=== PATIENT | female | born 1960 | race Caucasian/White ===

== ENCOUNTER 2018-12-15 08:06 | Inpatient (IN) | payer OTHER | END 2018-12-18 13:25 | disposition home or self-care (01) | LOC: PAS IN 08:06 → ORTHO 4S 13:18 | PROC: 0SRD0J9 Replacement of Left Knee Joint with Synthetic Substitute, Cemented, Open Approach (ICD-10-PCS; principal; 2018-12-15 10:04) | DX: M17.12 Unilateral primary osteoarthritis, left knee (principal); I10 Essential (primary) hypertension ==

== ENCOUNTER 2020-02-22 07:25 | Inpatient (IN) | payer OTHER ==
[2020-02-15 14:04] LABS: BASOPHILS % (AUTO) 0.4 % (0-1); EOSINOPHILS # (AUTO) 0.2 X10'3 (0-0.9); EOSINOPHILS % (AUTO) 2.1 % (0-6); LYMPHOCYTES # (AUTO) 3.2 X10'3 (1.1-4.8); MEAN CORPUSCULAR HEMOGLOBIN 27.9 PG (27.0-31.0); MEAN CORPUSCULAR HGB CONC 32.8 g/dL (33.0-36.5); MEAN CORPUSCULAR VOLUME 84.9 FL (78-98); MEAN PLATELET VOLUME 8.9 FL (7.4-10.4); MONOCYTES # (AUTO) 0.7 X10'3 (0-0.9); NEUTROPHILS # (AUTO) 3.3 X10'3 (1.8-7.7); NEUTROPHILS % (AUTO) 45.5 % (42-75); PRE OP HEMATOCRIT 44.7 % (35.0-45.0); PRE OP HEMOGLOBIN 14.7 g/dL (12.0-16.0); PRE OP PLATELET COUNT 290 X10'3 (140-440); RED BLOOD COUNT 5.27 X10'6 (4.20-5.60)
[2020-02-15 14:25] LABS: ALBUMIN 4.2 G/DL (3.4-5.0); ALBUMIN/GLOBULIN RATIO 1.1 (1.1-1.5); ALKALINE PHOSPHATASE 56 IU/L (46-116); BLOOD UREA NITROGEN 9 MG/DL (7-18); BUN/CREATININE RATIO 11.8 (6.6-38.0); CALCIUM 9.3 MG/DL (8.5-10.1); CHLORIDE 106 MMOL/L (99-107); CREATININE 0.76 MG/DL (0.40-0.90); PRE OP ALT 23 U/L (30-65); PRE OP ANION GAP 7 (8-16); PRE OP AST 12 U/L (10-37); PRE OP BILIRUB, TOTAL 0.3 MG/DL (0.0-1.0); PRE OP GLUCOSE 104 MG/DL (70-104); PRE OP POTASSIUM 4.1 MMOL/L (3.4-5.1); PRE OP SODIUM 141 MMOL/L (135-145); TOTAL CARBON DIOXIDE 28.2 MMOL/L (24-32); TOTAL PROTEIN 7.9 G/DL (6.4-8.2); eGFR 78 ML/MIN
[~2020-02-22] VITALS: Ht 170.2 cm; Wt 102.8 kg
[2020-02-22] VITALS (21 sets, daily range): BP systolic 83–120; BP diastolic 51–73
[~2020-02-22 07:25] MED LIST: CARV25TA2 PO; CHOL200074 PO; DOCUMENT DATE & TIME OF BETA-BLOCKER PO ONE; HYDROmorphone inj. 0.5 MG/0.5 ML DISP.SYRIN IV PRN; LEVO112T5 PO; MULT-1085 PO; SPIR50TA5 PO; acetaminophen 325mg tablet PO ONE; acetaminophen 325mg tablet PO PRN; bisacodyl 10mg suppository rectal RC PRN; ceFAZolin 2gm in dextrose, iso 50 ML IV ONE; celeCOXIB 100mg capsule PO ONE; diphenhydrAMINE 25mg capsule PO PRN; famotidine 20mg tablet PO ONE; gabapentin 300mg capsule PO ONE; magnesium hydroxide 30ml (MOM) UD suspension PO PRN; metoclopramide 5 mg/ml inj IV ONE; ondansetron/PF 4mg/2ml inj IV PRN; oxyCODONE SR 10mg (sust. release) tab -2 tabs (20mg) PO ONE; ringers solution, lacted 1,000 ML IV SCH; tranexamic acid inj. 1,000 MG in normal saline 100 ML IV ONE; vancomycin 1,500 MG in NS 300ml IV soln IV ONE
[2020-02-22] MEDS ORDERED: ketorolac trometh. 30mg/ml inj. ONE (08:00)
[2020-02-22] MEDS: spironolactone 50 MG tablet PO SCH (08:00)
[2020-02-22] MEDS: gabapentin 300mg capsule PO SCH ×3 (08:00→20:12)
[2020-02-22] MEDS ORDERED: vancomycin 1,000mg inj ONE (08:01)
[2020-02-22] MEDS ORDERED: ROPIVAcaine 0.5% (5mg/ml) 30ml vial ONE ×3 (08:01→09:12)
[2020-02-22] MEDS ORDERED: epiNEPHrine 1 mg/ml inj ONE (08:01)
[2020-02-22] MEDS ORDERED: cloNIDine hcl/PF 100mcg/ml inj ONE (08:01)
[2020-02-22] MEDS ORDERED: MIDAZolam 1mg/ml 10ml vial ONE (08:50)
[2020-02-22] MEDS ORDERED: fentaNYL/PF 50MCG/1 ML 2ML syringe ONE (08:50)
[2020-02-22] MEDS ORDERED: ePHEDrine 50MG/ML INJ. ONE (09:12)
[2020-02-22] MEDS ORDERED: ringers solution, lacted 1,000 ML IV SCH (09:46)
[2020-02-22] MEDS ORDERED: morphine 4 MG/ML inj SYRINge IV PRN (09:50)
[2020-02-22] MEDS ORDERED: meperidine/PF 25mg/ml syringe IV PRN ×3 (09:50)
[2020-02-22] MEDS ORDERED: ondansetron/PF 4mg/2ml inj IV PRN (09:50)
[2020-02-22] MEDS ORDERED: morphine 2 MG/ML inj. syringe IV PRN (09:50)
[2020-02-22] MEDS ORDERED: proCHLORperazine 10 MG/2 ml inj IV PRN (09:50)
--- NOTE | 2020-02-22 10:55 | NUR ---
PATIENT ARRIVED TO RECOVERY VIA BED WITH DR TAYLOR, PATIENT A&OX4, DENIES PAIN, V/S WNL, NEUROVASCULAR CHECKS INTACT, 18 G PIV LUE , TANI DRESSING TO RIGHT KNEE CDI W/ COLD POWDER PACK AND ON QUE BALL AT 4ML/HR, SCD ON. SENSATION T-10.
[2020-02-22] MEDS: ROPIVAcaine 0.2%/PF PUMP/bolus 550 ML ADDCANAL SCH (11:59)
[2020-02-22] MEDS ORDERED: ROPIVAcaine 0.2% (10 MG/5 ML) BOLUS INJECTION ADDCANAL PRN (12:00)
--- NOTE | 2020-02-22 12:35 | NUR ---
PATIENT A&OX4, DENIES PAIN, V/S WNL, NEUROVASCULAR CHECKS INTACT, 18 G PIV LUE , TANI DRESSING TO RIGHT KNEE CDI W/ COLD POWDER PACK AND ON QUE BALL AT 4ML/HR, SCD ON. SENSATION T-11. . PATIENT TAKEN TO 4024B WITH ALL BELONGINGS AND HOOKED UP TO MONITORS IN ROOM AND REPORT GIVEN TO ENTERTAINMENT REPORTER WHO HAS TAKEN OVER PATIENT CARE.BED LOW, CALL LIGHT PRESENT AND VSS.
[2020-02-22] MEDS: potassium cl 20mEq in 1/2 NS 1,000 ML IV SCH ×3 (14:13→17:38)
[2020-02-22] MEDS: oxyCODONE/APAP 10/325mg tablet PO PRN ×2 (15:31→20:12)
[2020-02-22] MEDS ORDERED: tranexamic acid 1gm/0.7% sal. 100 ML IV ONE (16:00)
[2020-02-22] MEDS: ceFAZolin 2gm in dextrose, iso 50 ML IV SCH (17:15)
--- NOTE | 2020-02-22 18:20 | NUR ---
Problems reprioritized. Patient report given, questions answered & plan of care reviewed with
--- NOTE | 2020-02-22 18:20 | NUR ---
Patient in room ORTHO 4023. I have received report from SHIV Cho and had the opportunity to ask questions and assume patient care.
[2020-02-22] MEDS ORDERED: VANCOMYCIN 1,500MG inj. 1,500 MG in normal saline 250ml IV soln 300 ML IV SCH (20:00)
[2020-02-22] MEDS: carVEDilol 12.5mg tablet PO SCH (20:00)
[2020-02-22] MEDS: sennosides 8.6mg tablet PO SCH (20:11)
[2020-02-22] MEDS: ascorbic acid 500mg tablet PO SCH (20:12)
[2020-02-23] VITALS (7 sets, daily range): BP systolic 93–130; BP diastolic 49–68
[2020-02-23] MEDS: oxyCODONE/APAP 10/325mg tablet PO PRN ×5 (00:11→19:19)
[2020-02-23] MEDS: ceFAZolin 2gm in dextrose, iso 50 ML IV SCH (00:11)
[2020-02-23] MEDS: potassium cl 20mEq in 1/2 NS 1,000 ML IV SCH (04:16)
[2020-02-23 06:23] LABS: BASOPHILS % (AUTO) 0.1 % (0-1); EOSINOPHILS # (AUTO) 0.1 X10'3 (0-0.9); EOSINOPHILS % (AUTO) 0.5 % (0-6); HEMATOCRIT 37.5 % (35.0-45.0); HEMOGLOBIN 12.2 g/dl (12.0-16.0); LYMPHOCYTES # (AUTO) 2.2 X10'3 (1.1-4.8); LYMPHOCYTES % (AUTO) 20.7 % (21-51); MEAN CORPUSCULAR HEMOGLOBIN 27.6 PG (27.0-31.0); MEAN CORPUSCULAR HGB CONC 32.4 g/dL (33.0-36.5); MEAN CORPUSCULAR VOLUME 84.9 FL (78-98); MEAN PLATELET VOLUME 9.5 FL (7.4-10.4); MONOCYTES # (AUTO) 1.2 X10'3 (0-0.9); MONOCYTES % (AUTO) 11.3 % (2-12); NEUTROPHILS # (AUTO) 7.1 X10'3 (1.8-7.7); NEUTROPHILS % (AUTO) 67.4 % (42-75); PLATELET COUNT 257 X10'3 (140-440); RED BLOOD COUNT 4.41 X10'6 (4.20-5.60); RED CELL DISTRIBUTION WIDTH 14.8 % (11.5-14.5); WHITE BLOOD COUNT 10.6 X10'3 (4.5-11.0)
--- NOTE | 2020-02-23 06:25 | NUR ---
Problems reprioritized. Patient report given, questions answered & plan of care reviewed with SHIV Silverman.
[2020-02-23 06:34] LABS: ANION GAP 4 (8-16); CHLORIDE 106 MMOL/L (99-107); POTASSIUM 4.2 MMOL/L (3.5-5.1); SODIUM 137 MMOL/L (135-145); TOTAL CARBON DIOXIDE 26.7 MMOL/L (24-32)
[2020-02-23] MEDS: ascorbic acid 500mg tablet PO SCH ×2 (09:05→19:16)
[2020-02-23] MEDS: gabapentin 300mg capsule PO SCH ×3 (09:05→21:53)
[2020-02-23] MEDS: levoTHYROXINE 112mcg tablet PO SCH (09:05)
[2020-02-23] MEDS: carVEDilol 12.5mg tablet PO SCH ×2 (09:05→19:38)
[2020-02-23] MEDS: multivitamins, therapeutics tablet PO SCH (09:05)
[2020-02-23] MEDS: aspirin 325mg tablet PO SCH (09:05)
[2020-02-23] MEDS: spironolactone 50 MG tablet PO SCH (09:06)
[2020-02-23] MEDS: HYDROmorphone 1 mg/ml syringe IV PRN (10:37)
[2020-02-23] MEDS ORDERED: scopolamine 1.5mg patch.TD72 TD ONE (10:50)
--- NOTE | 2020-02-23 11:44 | NUR ---
Joint Replacement Consult: Pt seen by HEAVEN for written/verbal high protein ed w/ RD contact information provided. Pt is agreeable to ensure high protein TIDWM; MANAGER CODE notified. Addendum: 02/23/20 at [address] Amended: Links added.
[2020-02-23] MEDS: lactose-reduced food (Ensure High Protein) 237ml bottle PO SCH ×3 (13:00→18:00)
[2020-02-23] MEDS: cyclobenzaprine 10mg tablet PO PRN ×2 (13:45→21:53)
--- NOTE | 2020-02-23 15:34 | NUR ---
Problems reprioritized. Patient report given, questions answered & plan of care reviewed with Anne CHANEY.
--- NOTE | 2020-02-23 18:28 | NUR ---
Patient in room ORTHO 4024. I have received report from Anne CHANEY and had the opportunity to ask questions and assume patient care.
[2020-02-23] MEDS: celeCOXIB 100mg capsule PO SCH (19:16)
[2020-02-23] MEDS: sennosides 8.6mg tablet PO SCH (21:53)
[2020-02-24] MEDS: oxyCODONE/APAP 10/325mg tablet PO PRN ×5 (01:11→21:07)
[2020-02-24 06:10] VITALS: BP 117/57
[2020-02-24 06:16] LABS: BASOPHILS % (AUTO) 0.3 % (0-1); EOSINOPHILS # (AUTO) 0.2 X10'3 (0-0.9); EOSINOPHILS % (AUTO) 2.4 % (0-6); HEMATOCRIT 32.8 % (35.0-45.0); LYMPHOCYTES # (AUTO) 2.9 X10'3 (1.1-4.8); LYMPHOCYTES % (AUTO) 36.6 % (21-51); MEAN CORPUSCULAR HEMOGLOBIN 28.7 PG (27.0-31.0); MEAN CORPUSCULAR HGB CONC 33.4 g/dL (33.0-36.5); MEAN CORPUSCULAR VOLUME 85.9 FL (78-98); MEAN PLATELET VOLUME 9.4 FL (7.4-10.4); MONOCYTES # (AUTO) 1.2 X10'3 (0-0.9); MONOCYTES % (AUTO) 15.4 % (2-12); NEUTROPHILS # (AUTO) 3.6 X10'3 (1.8-7.7); NEUTROPHILS % (AUTO) 45.3 % (42-75); PLATELET COUNT 210 X10'3 (140-440); RED BLOOD COUNT 3.81 X10'6 (4.20-5.60); WHITE BLOOD COUNT 7.9 X10'3 (4.5-11.0)
--- NOTE | 2020-02-24 06:27 | NUR ---
Patient in room ORTHO 4024. I have received report from Sirena CHANEY and had the opportunity to ask questions and assume patient care.
--- NOTE | 2020-02-24 06:27 | NUR ---
Patient in room ORTHO 4024. I have received report from Roslyn CHANEY and had the opportunity to ask questions and assume patient care.
[2020-02-24] MEDS: cyclobenzaprine 10mg tablet PO PRN (07:00)
[2020-02-24 07:43] LABS: ANISOCYTOSIS 1+; ELLIPTOCYTES FEW; PLATELET ESTIMATE NORMAL; SPHEROCYTES FEW; TOTAL CELLS COUNTED 100
[2020-02-24 07:44] LABS: ACANTHOCYTES FEW
[2020-02-24] MEDS ORDERED: ASPI-1 PO (07:48)
[2020-02-24] MEDS ORDERED: ONQPUMP ADDCANAL (07:48)
[2020-02-24] MEDS: spironolactone 50 MG tablet PO SCH (08:00)
[2020-02-24] MEDS: carVEDilol 12.5mg tablet PO SCH (08:00)
--- NOTE | 2020-02-24 08:00 | NUR ---
Okay with Autumn Carrasco to hold morning BP meds for low BP and dizzyness.
[2020-02-24] MEDS: gabapentin 300mg capsule PO SCH ×3 (08:44→21:08)
[2020-02-24] MEDS: levoTHYROXINE 112mcg tablet PO SCH (08:44)
[2020-02-24] MEDS: HYDROmorphone 1 mg/ml syringe IV PRN ×3 (08:44→17:12)
[2020-02-24] MEDS: celeCOXIB 100mg capsule PO SCH (08:45)
[2020-02-24] MEDS: ascorbic acid 500mg tablet PO SCH (08:45)
[2020-02-24] MEDS: multivitamins, therapeutics tablet PO SCH (08:45)
[2020-02-24] MEDS: aspirin 325mg tablet PO SCH (08:54)
[2020-02-24 10:00] VITALS: BP 151/78
[2020-02-24] MEDS: lactose-reduced food (Ensure High Protein) 237ml bottle PO SCH (14:00)
[2020-02-24 18:00] VITALS: BP 121/76
--- NOTE | 2020-02-24 18:00 | NUR ---
Patient in room ORTHO 4024. I have received report from SHIV Mcgowan and had the opportunity to ask questions and assume patient care. Addendum: 02/24/20 at 1837 by Anna Marsh RN Amended: Links added.
--- NOTE | 2020-02-24 18:37 | NUR ---
Problems reprioritized. Patient report given, questions answered & plan of care reviewed with Eduin CHANEY.
[2020-02-24] MEDS: sennosides 8.6mg tablet PO SCH (21:08)
[2020-02-24 22:00] VITALS: BP 140/64
[2020-02-25] MEDS: cyclobenzaprine 10mg tablet PO PRN (00:16)
[2020-02-25] MEDS: celeCOXIB 100mg capsule PO SCH ×2 (00:17→08:51)
[2020-02-25] MEDS: carVEDilol 12.5mg tablet PO SCH ×2 (00:17→08:00)
[2020-02-25] MEDS: ascorbic acid 500mg tablet PO SCH ×2 (00:17→08:00)
[2020-02-25] MEDS: oxyCODONE/APAP 10/325mg tablet PO PRN ×3 (02:23→12:22)
[2020-02-25 06:10] VITALS: BP 123/71
[2020-02-25 06:12] LABS: BASOPHILS % (AUTO) 0.4 % (0-1); EOSINOPHILS # (AUTO) 0.2 X10'3 (0-0.9); EOSINOPHILS % (AUTO) 2.7 % (0-6); HEMATOCRIT 32.3 % (35.0-45.0); HEMOGLOBIN 10.6 g/dl (12.0-16.0); LYMPHOCYTES # (AUTO) 2.8 X10'3 (1.1-4.8); LYMPHOCYTES % (AUTO) 38.2 % (21-51); MEAN CORPUSCULAR HGB CONC 32.8 g/dL (33.0-36.5); MEAN CORPUSCULAR VOLUME 85.1 FL (78-98); MEAN PLATELET VOLUME 9.2 FL (7.4-10.4); MONOCYTES % (AUTO) 13.8 % (2-12); NEUTROPHILS # (AUTO) 3.3 X10'3 (1.8-7.7); NEUTROPHILS % (AUTO) 44.9 % (42-75); PLATELET COUNT 217 X10'3 (140-440); RED CELL DISTRIBUTION WIDTH 14.7 % (11.5-14.5); WHITE BLOOD COUNT 7.4 X10'3 (4.5-11.0)
--- NOTE | 2020-02-25 06:25 | NUR ---
Patient in room ORTHO 4024. I have received report from Anna CHANEY and had the opportunity to ask questions and assume patient care.
--- NOTE | 2020-02-25 06:26 | NUR ---
Problems reprioritized. Patient report given, questions answered & plan of care reviewed with SHIV Mcgowan. Addendum: 02/25/20 at 0626 by Anna Marsh RN Amended: Links added.
[2020-02-25] MEDS: spironolactone 50 MG tablet PO SCH (08:00)
[2020-02-25] MEDS: aspirin 325mg tablet PO SCH (08:50)
[2020-02-25] MEDS: gabapentin 300mg capsule PO SCH ×2 (08:50→12:21)
[2020-02-25] MEDS: multivitamins, therapeutics tablet PO SCH (08:50)
[2020-02-25] MEDS: levoTHYROXINE 112mcg tablet PO SCH (08:51)
[2020-02-25 10:00] VITALS: BP 125/67
[2020-02-25] MEDS: ROPIVAcaine 0.2%/PF PUMP/bolus 550 ML ADDCANAL SCH (12:22)
--- NOTE | 2020-02-25 14:45 | NUR ---
Patient discharged at this time. Sukhjinder Guerrero RN taught patient discharge instructions and took patient to private vehicle in a wheel chair.
== END 2020-02-25 14:54 | disposition home or self-care (01) | DRG 470 ==
LOC: PAS 07:25 → EDSTATUS 12:00 → ORTHO 4S 12:40 → OBSVTOIN 02-23 15:50
PROVIDERS: ADMIT Orthopaedic Surgery; ATTEND Orthopaedic Surgery
PROC: 0SRC0J9 Replacement of Right Knee Joint with Synthetic Substitute, Cemented, Open Approach (ICD-10-PCS; principal; 2020-02-23)
PROC: XR2G021 Monitoring of Right Knee Joint using Intraoperative Knee Replacement Sensor, Open Approach, New Technology Group 1 (ICD-10-PCS; 2020-02-23)
DX: M17.11 Unilateral primary osteoarthritis, right knee (principal); D62 Acute posthemorrhagic anemia; M25.561 Pain in right knee; E03.9 Hypothyroidism, unspecified; I10 Essential (primary) hypertension
CPT/HCPCS: Z7506; Z7508; 36415; 73560; 80051; 80053; 82948; 84443; 85025; 86885; 86900; 86901; 87081; 93005; 97110; 97116; 97161; 97530; A4215; A6454; A7000; C1713; C1776; G0378; J0171; J0735; J1170; J1885; J2250; J2405; J2765; J2795; J3010; J3370; J3480; J7040; J7050; J7120